=== PATIENT | female | born 1960 | race Caucasian/White ===

== ENCOUNTER 2022-08-05 10:29 | Outpatient (CLI) | payer MEDICAID ==
[2022-08-05] MEDS ORDERED: NO HOME MEDS (10:45)
[2022-08-05] MEDS ORDERED: albuterol 2.5 MG/3 ML nebule NEB ONE (11:10)
[2022-08-10 06:34] LABS: ABG BASE EXCESS -4.4 mmol/L (-2.0-2.0); ABG HCO3 22.5 mmol/L (22.0-26.0); ABG OXYGEN SATURATION 95.9 % (94-97); ABG PCO2 (T) 48.7 mmHg (32.0-45.0); ABG PO2 (T) 90.9 mmHg (75.0-100.0); FCOHb 0.1 % (0.0-3.9); FLOW 10 L/min; FMetHb 0.1 % (0.0-1.5); FO2Hb 95.7 % (94-97)
[2022-08-10 06:34] LABS: ABG BASE EXCESS -1.5 mmol/L (-2.0-2.0); ABG HCO3 24.9 mmol/L (22.0-26.0); ABG OXYGEN SATURATION 93.1 % (94-97); ABG PCO2 (T) 48.4 mmHg (32.0-45.0); ABG PO2 (T) 70.1 mmHg (75.0-100.0); FCOHb 0.4 % (0.0-3.9); FLOW 2 L/min; FMetHb 0.2 % (0.0-1.5); FO2Hb 92.5 % (94-97)
[2022-08-10 06:34] LABS: ABG BASE EXCESS -3.2 mmol/L (-2.0-2.0); ABG HCO3 23.9 mmol/L (22.0-26.0); ABG OXYGEN SATURATION 95.6 % (94-97); ABG PCO2 (T) 51.2 mmHg (32.0-45.0); ABG PO2 (T) 87.7 mmHg (75.0-100.0); FCOHb 0.2 % (0.0-3.9); FLOW 10 L/min; FMetHb 0.2 % (0.0-1.5); FO2Hb 95.2 % (94-97); TOTAL HEMOGLOBIN 13.6 G/dl (12.0-16.0)
== END 2022-08-05 23:59 | disposition home or self-care (01) ==
LOC: RT 10:29
PROVIDERS: ATTEND Surgery
DX: Z01.818 Encounter for other preprocedural examination (principal); C34.91 Malignant neoplasm of unspecified part of right bronchus or lung; R94.2 Abnormal results of pulmonary function studies; J98.4 Other disorders of lung; F17.210 Nicotine dependence, cigarettes, uncomplicated
CPT/HCPCS: 36600; 82803; 85018; 94060; 94727; 94729; 94760

== ENCOUNTER 2022-10-07 11:57 | Day surgery (SDC) | payer MEDICAID ==
[~2022-10-07] VITALS: Ht 162.6 cm; Wt 52.5 kg
[~2022-10-07 11:57] MED LIST: NO HOME MEDS
[2022-10-07] MEDS ORDERED: normal saline 1000ml 1,000 ML IV ONE (12:20)
[2022-10-07 12:21] VITALS: BP 142/80
[2022-10-07] MEDS ORDERED: heparin sodium, porcine/PF 100unit/ml 5ML syringe ONE (12:30)
[2022-10-07] MEDS ORDERED: midazolam 1 mg/ML 2ml injection ONE (12:31)
[2022-10-07] MEDS ORDERED: FENTANYL CITRATE/PF 50 MCG/1 ML VIAL ONE ×2 (12:31→13:49)
[2022-10-07 12:52] LABS: BASOPHILS # (AUTO) 0.1 X10'3 (0-0.2); BASOPHILS % (AUTO) 1.1 % (0-1); EOSINOPHILS # (AUTO) 0.3 X10'3 (0-0.9); EOSINOPHILS % (AUTO) 4.6 % (0-6); HEMATOCRIT 40.3 % (35.0-45.0); HEMOGLOBIN 13.3 g/dl (12.0-16.0); LYMPHOCYTES # (AUTO) 1.3 X10'3 (1.1-4.8); LYMPHOCYTES % (AUTO) 23.6 % (21-51); MEAN CORPUSCULAR HEMOGLOBIN 28.5 PG (27.0-31.0); MEAN CORPUSCULAR HGB CONC 32.9 g/dL (33.0-36.5); MEAN CORPUSCULAR VOLUME 86.8 FL (78-98); MEAN PLATELET VOLUME 7.1 FL (7.4-10.4); MONOCYTES # (AUTO) 0.4 X10'3 (0-0.9); MONOCYTES % (AUTO) 6.8 % (2-12); NEUTROPHILS # (AUTO) 3.5 X10'3 (1.8-7.7); NEUTROPHILS % (AUTO) 63.9 % (42-75); PLATELET COUNT 317 X10'3 (140-440); RED BLOOD COUNT 4.64 X10'6 (4.20-5.60); RED CELL DISTRIBUTION WIDTH 13.5 % (11.5-14.5); WHITE BLOOD COUNT 5.6 X10'3 (4.5-11.0)
[2022-10-07] MEDS ORDERED: normal saline 1000ml 1,000 ML IV SCH (13:10)
[2022-10-07 14:12] VITALS: BP 138/86
[2022-10-07 14:27] VITALS: BP 134/86
[2022-10-07 14:42] VITALS: BP 141/85
== END 2022-10-07 15:05 | disposition home or self-care (01) ==
LOC: SSTAY O 11:57
PROVIDERS: ATTEND Radiology Diagnostic Radiology
DX: C34.11 Malignant neoplasm of upper lobe, right bronchus or lung (principal); Z79.01 Long term (current) use of anticoagulants; Z88.1 Allergy status to other antibiotic agents; Z88.8 Allergy status to other drugs, medicaments and biological substances; Z91.041 Radiographic dye allergy status
CPT/HCPCS: 36561; 76937; 77001; 85025; 85610; 99152; 99153; C1769; C1788; C1894; J1642; J2250; J3010; J7030; 36415; A4620